=== PATIENT | female | born 1950 | race Caucasian/White ===

== ENCOUNTER → 2017-11-12 | Outpatient (CLI) | payer MEDICARE, MEDICAID ==
[~2017-11-12] MED LIST: FLUOXETINE HCL10 MG PO; HCTZ/TRIAMTEREN1 TA3 PO; HYDROCODONE BIT1 T11 PO; LEVOFLOXACIN500 MG PO; LISINOPRIL10 MG PO; MOTRIN600 MG PO; NAPROSYN500 MG PO; PYRIDIUM100 MG PO; SIMVASTATIN40 MG PO; VICODIN 5/500 505 MG PO
== END | disposition home or self-care (01) ==
LOC: MAMMO 07:09
DX: Z12.31 Encounter for screening mammogram for malignant neoplasm of breast (principal)

== ENCOUNTER → 2020-08-10 | Outpatient (CLI) | payer MEDICARE, MEDICAID ==
[~2020-08-10] MED LIST changes: +CEFDINIR300 MG PO
== END | disposition home or self-care (01) ==
LOC: MAMMO 02:27
PROVIDERS: ATTEND Nurse Practitioner Family
DX: Z12.31 Encounter for screening mammogram for malignant neoplasm of breast (principal)

== ENCOUNTER 2020-09-01 12:33 | Emergency (ER) | payer MEDICARE, MEDICAID ==
[~2020-09-01] VITALS: Ht 177.8 cm; Wt 127.0 kg
[~2020-09-01 12:33] MED LIST changes: -CEFDINIR300 MG PO
[2020-09-01] MEDS ORDERED: CEFDINIR300 MG PO (14:13)
== END 2020-09-01 14:19 | disposition home or self-care (01) ==
LOC: ED 12:33
DX: H65.92 Unspecified nonsuppurative otitis media, left ear (principal); Z90.710 Acquired absence of both cervix and uterus; Z98.890 Other specified postprocedural states; Z79.899 Other long term (current) drug therapy

== ENCOUNTER → 2021-05-31 | Day surgery (SDC) | payer MEDICARE ==
[~2021-05-31] VITALS: Ht 177.8 cm; Wt 122.0 kg
[~2021-05-31] MED LIST changes: +CARAFATE1 G1 PO; +CEFDINIR300 MG PO; +LEXAPRO10 MG PO; +PROTONIX40 MG PO
[2021-05-31 09:16] VITALS: BP 162/80
[2021-05-31 10:00] VITALS: BP 93/50
[2021-05-31 10:15] VITALS: BP 109/59
[2021-05-31 10:30] VITALS: BP 122/66
== END | disposition home or self-care (01) ==
LOC: SDC 05-28 11:00
PROVIDERS: ATTEND Surgery
DX: Z12.11 Encounter for screening for malignant neoplasm of colon (principal); K57.30 Diverticulosis of large intestine without perforation or abscess without bleeding; K29.70 Gastritis, unspecified, without bleeding; F32.9 Major depressive disorder, single episode, unspecified; K21.9 Gastro-esophageal reflux disease without esophagitis; Z86.010 Personal history of colon polyps; Z90.49 Acquired absence of other specified parts of digestive tract; Z90.89 Acquired absence of other organs; Z90.710 Acquired absence of both cervix and uterus; Z20.822 Contact with and (suspected) exposure to COVID-19; Z79.899 Other long term (current) drug therapy
CPT/HCPCS: 00813; 43239; G0105

== ENCOUNTER → 2021-11-01 | Outpatient (CLI) | payer MEDICARE | END | disposition home or self-care (01) | LOC: MAMMO 10:06 | PROVIDERS: ATTEND Nurse Practitioner Family | DX: Z12.31 Encounter for screening mammogram for malignant neoplasm of breast (principal); N63.20 Unspecified lump in the left breast, unspecified quadrant ==

== ENCOUNTER → 2022-07-18 | Outpatient (CLI) | payer MEDICARE ==
[~2022-07-18] MED LIST changes: +CALCIUM 1,0001 EAC3 PO; +Mysoline50 MG PO
== END | disposition home or self-care (01) ==
LOC: CARD 00:19
PROVIDERS: ATTEND Registered Nurse
DX: E66.01 Morbid (severe) obesity due to excess calories (principal); I10 Essential (primary) hypertension; R00.2 Palpitations; R94.31 Abnormal electrocardiogram [ECG] [EKG]; R53.81 Other malaise

== ENCOUNTER → 2022-08-14 | Outpatient (CLI) | payer MEDICARE | END | disposition home or self-care (01) | LOC: US 00:48 | PROVIDERS: ATTEND Internal Medicine Cardiovascular Disease | DX: Z13.6 Encounter for screening for cardiovascular disorders (principal); I10 Essential (primary) hypertension; K76.89 Other specified diseases of liver ==

== ENCOUNTER 2022-10-11 20:36 | Emergency (ER) | payer MEDICARE ==
[~2022-10-11] VITALS: Ht 177.8 cm; Wt 118.4 kg
[2022-10-11] MEDS ORDERED: NAPROXEN250 MG PO (22:42)
== END 2022-10-11 23:00 | disposition home or self-care (01) ==
LOC: ED 20:36
DX: G56.02 Carpal tunnel syndrome, left upper limb (principal); I10 Essential (primary) hypertension; F32.A Depression, unspecified; K21.9 Gastro-esophageal reflux disease without esophagitis; E78.00 Pure hypercholesterolemia, unspecified; Z90.710 Acquired absence of both cervix and uterus; Z98.890 Other specified postprocedural states

== ENCOUNTER → 2023-01-28 | Outpatient (CLI) | payer MEDICARE ==
[~2023-01-28] MED LIST changes: +NAPROXEN250 MG PO
== END | disposition home or self-care (01) ==
LOC: MAMMO 03:07
PROVIDERS: ATTEND Physician Assistant
DX: Z12.31 Encounter for screening mammogram for malignant neoplasm of breast (principal)

== ENCOUNTER 2024-01-08 08:55 | Emergency (ER) | payer MEDICARE ==
[~2024-01-08] VITALS: Ht 177.8 cm; Wt 102.5 kg
[2024-01-08] MEDS ORDERED: PROPRANOLOL HCL10 MG PO (09:16)
[2024-01-08] MEDS ORDERED: PRIMIDONE250 MG PO (09:17)
[2024-01-08] MEDS ORDERED: TRIAMTERENE-HC1 EACH PO (09:18)
[2024-01-08] MEDS ORDERED: LISINOPRIL2.5 MG PO (09:19)
[2024-01-08] MEDS ORDERED: ASPIRIN ADULT L81 M1 PO (09:20)
[2024-01-08] MEDS ORDERED: LEXAPRO20 MG PO (09:31)
[2024-01-08] MEDS ORDERED: CALCIUM 500-VI1 EAC3 PO (09:32)
[2024-01-08] MEDS ORDERED: CYCLOBENZAPRINE5 M3 PO (10:41)
== END 2024-01-08 10:43 | disposition home or self-care (01) ==
LOC: ED 08:55
DX: M62.838 Other muscle spasm (principal); R51.9 Headache, unspecified; M54.2 Cervicalgia; I10 Essential (primary) hypertension; F32.A Depression, unspecified; K21.9 Gastro-esophageal reflux disease without esophagitis; E78.00 Pure hypercholesterolemia, unspecified; Z90.710 Acquired absence of both cervix and uterus; Z90.49 Acquired absence of other specified parts of digestive tract; Z98.890 Other specified postprocedural states; W06.XXXA Fall from bed, initial encounter

== ENCOUNTER → 2024-04-08 | Outpatient (CLI) | payer MEDICARE ==
[~2024-04-08] MED LIST changes: +ASPIRIN ADULT L81 M1 PO; +CALCIUM 500-VI1 EAC3 PO; +CYCLOBENZAPRINE5 M3 PO; +LEXAPRO20 MG PO; +LISINOPRIL2.5 MG PO; +PRIMIDONE250 MG PO; +PROPRANOLOL HCL10 MG PO; +TRIAMTERENE-HC1 EACH PO
== END | disposition home or self-care (01) ==
LOC: MAMMO 01:15
PROVIDERS: ATTEND Physician Assistant
DX: Z12.31 Encounter for screening mammogram for malignant neoplasm of breast (principal); R92.1 Mammographic calcification found on diagnostic imaging of breast

== ENCOUNTER 2024-06-16 11:47 | Emergency (ER) | payer OTHER ==
[~2024-06-16] VITALS: Wt 101.2 kg
== END 2024-06-16 14:01 | disposition home or self-care (01) ==
LOC: ED 11:47
DX: S00.83XA Contusion of other part of head, initial encounter (principal); I10 Essential (primary) hypertension; F32.A Depression, unspecified; K21.9 Gastro-esophageal reflux disease without esophagitis; E78.00 Pure hypercholesterolemia, unspecified; Z98.890 Other specified postprocedural states; Z90.710 Acquired absence of both cervix and uterus; Z90.49 Acquired absence of other specified parts of digestive tract; W01.190A Fall on same level from slipping, tripping and stumbling with subsequent striking against furniture, initial encounter; Y93.89 Activity, other specified; Y92.008 Other place in unspecified non-institutional (private) residence as the place of occurrence of the external cause; Y99.8 Other external cause status

== ENCOUNTER → 2025-05-09 | Outpatient (CLI) | payer OTHER | END | disposition home or self-care (01) | LOC: MAMMO 05:15 | PROVIDERS: ATTEND Physician Assistant | DX: Z12.31 Encounter for screening mammogram for malignant neoplasm of breast (principal); R92.313 Mammographic fatty tissue density, bilateral breasts ==